=== PATIENT | female | born 1965 | race Two or more races ===

== ENCOUNTER 2024-04-03 20:27 | Inpatient (IN) | payer OTHER ==
[~2024-04-03] VITALS: Ht 170.2 cm; Wt 69.9 kg
[2024-04-03] MEDS ORDERED: SINGULAIR10 MG PO (20:36)
[2024-04-03] MEDS ORDERED: HYOSCYAMINE SULFATE 0.125 MG TAB.SUBL PO ONE (21:30)
[2024-04-03] MEDS ORDERED: FAMOtidine 10 MG/ML (4ML VIAL) IV PUSH ONE (21:30)
[2024-04-03] MEDS ORDERED: 0.9 % SODIUM CHLORIDE 1,000 ML IV ONE (21:30)
[2024-04-03] MEDS ORDERED: FAMOTIDINE/PF 20 MG/2 ML VIAL ONE (21:33)
[2024-04-03] MEDS ORDERED: HYOSCYAMINE SULFATE 0.125 MG TAB.SUBL ONE (21:33)
[2024-04-03 22:00] LABS: HEMATOCRIT 43.5 % (36.0-45.00); HEMOGLOBIN 14.9 g/dL (12.0-15.00); MEAN CELL VOLUME 85.4 fL (80.00-100.00); MEAN CORPUSCULAR HEMOGLOBIN 29.4 pg (27.00-32.0); MEAN CORPUSCULAR HGB CONC 34.4 g/dl (32.0-36.0); PLATELET COUNT 196 K/uL (150-450); RED BLOOD COUNT 5.09 M/uL (4.00-6.00); RED CELL DISTRIBUTION WIDTH 14.2 % (11.5-14.5)
[2024-04-03 22:09] LABS: INR 1.05; PARTIAL THROMBOPLASTIN TIME 28.4 SECONDS (22.0-34.0); PROTHROMBIN TIME 11.4 SECONDS (9.0-11.5)
[2024-04-03 22:14] LABS: ALBUMIN 3.5 gm/dL (3.4-5.0); BILIRUBIN TOTAL 1.18 mg/dL (0.3-1.2); CALCIUM 8.7 mg/dL (8.5-10.1); CREATININE SERUM 0.78 mg/dL (0.55-1.02); GFR 75.33; GLOBULINA 3.3 G/DL (2.4-3.5); POTASSIUM 3.74 mEq/L (3.5-5.1); TOTAL PROTEIN 6.8 gm/dL (6.4-8.2)
[2024-04-03 22:20] LABS: C-REACTIVE PROTEIN 1.18 MG/DL (0.00-0.29)
[2024-04-03] MEDS ORDERED: 0.9 % SODIUM CHLORIDE 1,000 ML IV SCH (23:15)
[2024-04-03] MEDS ORDERED: ONDANSETRON HCL 4 MG in 0.9 % SODIUM CHLORIDE 50 ML IV PRN (23:30)
[2024-04-03] MEDS ORDERED: ACETAMINOPHEN 500 MG GEL..CAP PO PRN (23:30)
[2024-04-04 00:42] LABS: URINE APPEARANCE Clear; URINE BILIRRUBIN Negative (NEGATIVE); URINE BLOOD Negative; URINE COLOR Yellow; URINE GLUCOSE Negative (NEGATIVE); URINE KETONE Negative (NEGATIVE); URINE LEUKOCYTE Negative; URINE NITRATE Negative; URINE PROTEIN Negative (NEGATIVE); URINE UROBILINOGEN 0.2 E.U./dl
[2024-04-04 00:46] LABS: URINE EPITHELIAL CELLS 7.1 uL (0.0-38.8)
[2024-04-04 00:55] LABS: URINE RBC 1.4 uL (0.0-20.8)
[2024-04-04 06:38] VITALS: BP 122/77
[2024-04-04] MEDS ORDERED: FAMOTIDINE/PF 20 MG in 0.9 % SODIUM CHLORIDE 8 ML IV PUSH SCH (09:00)
[2024-04-04 09:13] VITALS: BP 112/71; O2SAT 98
[2024-04-04 17:44] VITALS: BP 129/66
[2024-04-04] MEDS ORDERED: DICYCLOMINE HCL 20 MG TABLET PO ONE (22:08)
[2024-04-04] MEDS ORDERED: DICYCLOMINE HCL 10 MG CAPSULE PO SCH (22:15)
[2024-04-05 02:49] VITALS: BP 120/76
[2024-04-05 05:56] LABS: HEMATOCRIT 40.7 % (36.0-45.00); HEMOGLOBIN 13.6 g/dL (12.0-15.00); MEAN CELL VOLUME 87.1 fL (80.00-100.00); MEAN CORPUSCULAR HEMOGLOBIN 29.1 pg (27.00-32.0); MEAN CORPUSCULAR HGB CONC 33.4 g/dl (32.0-36.0); PLATELET COUNT 180 K/uL (150-450); RED BLOOD COUNT 4.67 M/uL (4.00-6.00); RED CELL DISTRIBUTION WIDTH 13.7 % (11.5-14.5)
[2024-04-05 06:38] LABS: CALCIUM 8.5 mg/dL (8.5-10.1); CREATININE SERUM 0.73 mg/dL (0.55-1.02); GFR 81.32; POTASSIUM 3.84 mEq/L (3.5-5.1)
[2024-04-05] MEDS ORDERED: FAMOTIDINE/PF 20 MG in 0.9 % SODIUM CHLORIDE 8 ML IV PUSH SCH (09:00)
[2024-04-05 09:49] VITALS: BP 102/68; O2SAT 98
[2024-04-05 13:08] LABS: FECAL LEUKOCYTES NEGATIVE (NEGATIVE)
[2024-04-05] MEDS ORDERED: MONTELUKAST SODIUM 10 MG TABLET PO SCH (17:00)
[2024-04-05 17:07] VITALS: BP 136/89
[2024-04-05] MEDS ORDERED: DICYCLOMINE HCL 20 MG TABLET PO SCH (21:00)
[2024-04-06 02:59] VITALS: BP 106/70
[2024-04-06 08:50] VITALS: BP 108/66
== END 2024-04-06 14:06 | disposition home or self-care (01) | DRG 392 ==
LOC: ER 20:30 → SEC-K 23:25 → MEDJ 23:25
PROVIDERS: General Practice; Student in an Organized Health Care Education/Training Program; ADMIT Internal Medicine; ATTEND Internal Medicine
PROC: BW21YZZ Computerized Tomography (CT Scan) of Abdomen and Pelvis using Other Contrast (ICD-10-PCS; principal; 2024-04-03)
DX: K52.9 Noninfective gastroenteritis and colitis, unspecified (principal)